=== PATIENT | female | born 1955 | race Caucasian/White ===

== ENCOUNTER 2017-12-17 19:58 | Inpatient (IN) ==
[2017-12-17] MEDS ORDERED: Acetaminophen 325 MG Tablet PO ONE (21:56)
[2017-12-17] MEDS ORDERED: Vancomycin Inj 1 GM/200 ML PIGGYBACK IV.SIG ONE (21:56)
[2017-12-17] MEDS ORDERED: Sod Chloride 0.9% Inj 1,000 ML IV.SIG ONE (21:59)
[2017-12-18 00:05] LABS: Baso # (Auto) 0.1 th/mm3 (0.0-0.2); Baso % (Auto) 0.3 % (0.0-2.0); Eos % (Auto) 0.2 % (0.0-4.0); Hematocrit 39.9 % (35.0-46.0); Hemoglobin 13.7 gm/dL (11.6-15.3); Lymph # (Auto) 2.2 th/mm3 (1.0-4.8); Lymph % (Auto) 10.8 % (9.0-44.0); Mean Corpuscular HGB Conc 34.4 % (32.0-36.0); Mean Corpuscular Volume 93.1 fL (80.0-100.0); Mean Platelet Volume 9.7 fL (7.0-11.0); Mono # (Auto) 1.5 th/mm3 (0.0-0.9); Mono % (Auto) 7.2 % (0.0-8.0); Neut # (Auto) 16.7 th/mm3 (1.8-7.7); Neut % (Auto) 81.5 % (16.0-70.0); Platelet Count 197 th/mm3 (150-450); Red Blood Count 4.29 mil/mm3 (4.00-5.30); Red Cell Distribution Width 12.6 % (11.6-17.2); White Blood Count 20.5 th/mm3 (4.0-11.0)
[2017-12-18 00:15] LABS: Calcium 9.4 mg/dL (8.5-10.1)
--- NOTE | 2017-12-18 00:59 | CT ---
EXAM DATE: 12/18/2017 12:43 AM EDT AGE/SEX: 62 years / Female INDICATIONS: Possible abscess below umbilical region. CLINICAL DATA: This is the patient's initial encounter. Patient reports that signs and symptoms have been present for 3 days and indicates a pain score of 5/10. MEDICAL/SURGICAL HISTORY: Aneurysm, intracranial. Hypertension. Craniotomy. ORAL CONTRAST: No oral contrast ingested. RADIATION DOSE: 18.23 CTDI (mGy) COMPARISON: No prior exams available for comparison. TECHNIQUE: Multiple contiguous axial images were obtained through the abdomen and pelvis following b olus infusion of 95 ml Omnipaque 350 (iohexol) nonionic water-soluble contrast as a single exam dos e. No oral contrast ingested. Using automated exposure control and adjustment of the mA and/or kV ac cording to patient size, radiation dose was kept as low as reasonably achievable to obtain optimal di agnostic quality images. DICOM format image data is available electronically for review and comparis on. FINDINGS: Lower anterior abdominal wall subcutaneous fat is indurated, especially in the right lower quadrant. No organized or drainable fluid demonstrated. No intraperitoneal involvement seen. The liver, spleen and pancreas are normal. A few small stones in an otherwise normal-appearing gallbl adder. No ductal stone or ductal dilatation. There are nodules of the left adrenal gland, 15 mm of the medial limb and 12 mm of the lateral limb, statistically most likely adenomas. Right adrenal gland is normal. 12 mm left lower pole benign renal cyst.. Right kidney has a 17 mm benign cyst of the mid zone. No obstruction or acute inflammatory changes are seen of the gastrointestinal tract. There is a small hiatal hernia. Prominent central low-attenuation of the uterus measuring approximately 19 x 28 mm in size. There is atherosclerosis of the abdominal aorta. No aneurysm. Visualized lung bases are within normal limits. No acute bony abnormality demonstrated. CONCLUSION: 1. Broad area cellulitis of the anterior abdominal wall, mostly in the right lower quadrant. No perc eptible abscess. No intraperitoneal involvement demonstrated. 2. CT appearance of the uterus of concern for a possible endometrial mass/carcinoma. 3. Left adrenal nodules, nonspecific but statistically most likely adenomas. 4. Bilateral benign renal cysts. 5. Cholelithiasis without evidence of cholecystitis. No ductal stone or ductal dilatation. 6. Atherosclerotic aorta. 7. Small hiatal hernia. Electronically signed by: Mehul Christy MD 12/18/2017 12:58 AM EDT
[2017-12-18] MEDS ORDERED: Bisacodyl 10 MG Supp RECTAL PRN (01:20)
[2017-12-18] MEDS ORDERED: Temazepam 15 MG Capsule PO PRN (01:20)
[2017-12-18] MEDS ORDERED: Vancomycin Consult Pharmacy 1 EACH OTHER SCH (02:00)
[2017-12-18] MEDS ORDERED: Vancomycin Inj 1,250 MG in Sodium Chlor 0.9% Inj 250 ML IV.SIG SCH (02:00)
[2017-12-18] MEDS ORDERED: Vancomycin Inj 1,000 MG in Sodium Chlor 0.9% Inj 250 ML IV.SIG SCH (02:15)
--- NOTE | 2017-12-18 02:17 | ED ---
HPI General Chief complaint: Skin/Abscess/Foreign Body Stated complaint: SKIN IRRITATION Time Seen by Provider: 12/17/17 21:47 History of Present Illness HPI narrative: 62-year-old female presents to the emergency department for complaint of red rash to the lower abdominal wall over the past 2 days. Symptoms have progressively worsened. Patient states she was working out of doors and felt that she might of been stung or bitten by some type of insect and noted some redness. Patient states since that time that she has had progression of her redness and noted that she had fever. Patient's had no myalgias or arthralgias. Patient's had no rigor. Patient is not diabetic. Patient rates discomfort as moderate. Patient does have history of hypertension and takes blood pressure medication as prescribed. Patient is taken no medication for her symptoms no acetaminophen or ibuprofen. Patient is unable to identify exacerbating or alleviating factors. Related Data Home Medications Medication Instructions Recorded Confirmed benazepril 40 mg PO DAILY 12/17/17 12/17/17 lovastatin 10 mg PO DAILY 12/17/17 12/17/17 metoprolol succinate 100 mg PO DAILY 12/17/17 12/17/17 nifedipine 60 mg PO DAILY 12/17/17 12/17/17 Allergies Allergy/AdvReac Type Severity Reaction Status Date / Time Penicillins Allergy Severe Hives Verified 12/17/17 21:55 codeine Allergy Rash Verified 12/17/17 23:02 morphine Allergy Rash Verified 12/17/17 23:02 Sulfa (Sulfonamide Allergy Rash Verified 12/17/17 23:02 Antibiotics) aspirin AdvReac Bleeding Verified 12/17/17 23:02 Review of Systems Except as stated in HPI: all other systems reviewed are negative [facility] Medical History Medical History Brain aneurysm (Acute) Fibromyalgia (Acute) HTN (hypertension) (Acute) Surgical History Surgical History Hx of cardiac cath (Acute) Social History Social History Substance History: No History of Abuse Second Hand Smoke Exposure: No Smoking Status: Former smoker How Often Do You Have a Drink Containing Alcohol: Never Recent Travel in [facility] within the Last 8 Weeks: No Recent Out of Country Travel within the Last 8 Weeks: No Exam Narrative Exam Narrative: GENERAL: Well-nourished, well-developed patient. SKIN: Focused skin assessment warm/dry. HEAD: Normocephalic. EYES: No scleral icterus. No injection or drainage. NECK: Supple, trachea midline. No JVD or lymphadenopathy. CARDIOVASCULAR: Regular rate and rhythm without murmurs, gallops, or rubs. RESPIRATORY: Breath sounds equal bilaterally. No accessory muscle use. GASTROINTESTINAL: Abdomen soft, non-tender, nondistended. Attention lower abdominal wall patient has an area of bright erythema with warmth and area of firmness without fluctuance or pointing 31 cm x 11 cm. MUSCULOSKELETAL: No cyanosis, or edema. BACK: Nontender without obvious deformity. No CVA tenderness. Course Initial Documented Vital Signs Temperature 99.3 F 12/17/17 20:07 Pulse Rate 98 H 12/17/17 20:07 Respiratory Rate 18 12/17/17 20:07 Blood Pressure 158/97 H 12/17/17 20:07 Pulse Oximetry 100 12/17/17 20:07 Last Documented Vital Signs Temperature 97.2 F L 12/18/17 04:00 Pulse Rate 65 12/18/17 04:00 Respiratory Rate 20 12/18/17 04:00 Blood Pressure 117/55 L 12/18/17 04:00 Pulse Oximetry 96 12/18/17 04:00 Medical Decision Making [facility] Narrative Medical decision making narrative: 62-year-old female with erythematous rash consistent with localized area of cellulitis possible early her elevated heart rate meet sepsis criteria and IV access obtained specimens collected and sent for resulting patient given IV fluids antipyretics and vancomycin Leukocytosis without an elevated lactic patient with good response to antipyretics CAT scan shows cellulitis Patient's case discussed with on-call medicine, Dr Locke, for admission for sepsis and abdominal wall cellulitis Differential Diagnosis Differential Diagnosis: Cellulitis abscess sepsis Medical Records Medical records reviewed: Yes I reviewed the patient's medical records. Lab Data Lab results reviewed: Yes I reviewed the patient's lab results. Result diagrams: 12/17/17 23:45 12/17/17 23:45 Lab Results 12/17/17 12/17/17 12/17/17 Range/Units 00:20 23:45 23:45 CBC w Diff Auto diff final WBC 20.5 H (4.0-11.0) th/mm3 RBC 4.29 (4.00-5.30) mil/mm3 Hgb 13.7 (11.6-15.3) gm/dL Hct 39.9 (35.0-46.0) % MCV 93.1 (80.0-100.0) fL MCH 32.0 (27.0-34.0) pg MCHC 34.4 (32.0-36.0) % RDW 12.6 (11.6-17.2) % Plt Count 197 (150-450) th/mm3 MPV 9.7 (7.0-11.0) fL Neut % (Auto) 81.5 H (16.0-70.0) % Lymph % (Auto) 10.8 (9.0-44.0) % [place] % (Auto) 7.2 (0.0-8.0) % Eos % (Auto) 0.2 (0.0-4.0) % Baso % (Auto) 0.3 (0.0-2.0) % Neut # (Auto) 16.7 H (1.8-7.7) th/mm3 Lymph # (Auto) 2.2 (1.0-4.8) th/mm3 [place] # (Auto) 1.5 H (0.0-0.9) th/mm3 Eos # (Auto) 0.0 (0.0-0.4) th/mm3 Baso # (Auto) 0.1 (0.0-0.2) th/mm3 WBC Differential . Sodium 134 L (136-145) meq/L Potassium 4.0 (3.5-5.1) meq/L Chloride 107 (98-107) meq/L Carbon Dioxide 18.0 L (21.0-32.0) meq/L Anion Gap 9 (5-15) meq/L BUN 13 (7-18) mg/dL Creatinine 0.78 (0.50-1.00) mg/dL Estimated GFR 75 L (>89) mL/min Random Glucose 110 H (74-106) mg/dL Lactic Acid 0.8 (0.4-2.0) mmol/L Calcium 9.4 (8.5-10.1) mg/dL Lactic acid is not elevated Imaging Data Radiologist's impression: ITS Impressions Abdomen/Pelvis CT 12/18/17 00:00 CONCLUSION: 1. Broad area cellulitis of the anterior abdominal wall, mostly in the right lower quadrant. No perceptible abscess. No intraperitoneal involvement demonstrated. 2. CT appearance of the uterus of concern for a possible endometrial mass/ carcinoma. 3. Left adrenal nodules, nonspecific but statistically most likely adenomas. 4. Bilateral benign renal cysts. 5. Cholelithiasis without evidence of cholecystitis. No ductal stone or ductal dilatation. 6. Atherosclerotic aorta. 7. Small hiatal hernia. Discharge Plan Discharge Disposition Patient Disposition: 30 Still Patient Physicians Team ED Provider: Irene Alanis Primary Care Provider: Blake Wilder Attending Provider: Augustine Moctezuma Status ED Status: Left Department Discharge Information Discharge Date/Time: 12/18/17 02:30
[2017-12-18] MEDS: Sod Chloride 0.9% Inj 1,000 ML IV.CONT SCH ×3 (03:16→20:43)
[2017-12-18] MEDS: Vancomycin Inj 1,250 MG in Sodium Chlor 0.9% Inj 250 ML IV.SIG SCH ×2 (05:26→17:00)
[2017-12-18] MEDS: Senna/Docusate Sodium 8.6/50 MG Tablet PO SCH ×2 (08:22→20:43)
--- NOTE | 2017-12-18 10:22 | P.HP ---
History of Present Illness Primary Care Physician: Blake Wilder MD Chief Complaint: Abdominal skin red and painful History of Present Illness: 8-year-old female with known history of hypertension, hyperlipidemia, fibromyalgia, history of brain abscess who presented to the hospital because of abdominal skin redness and pain. Patient states that she was in her normal state of health until Thursday when she noticed a little red spot on her abdomen after she had been working in the yard. And then progressively since then started developing worsening erythema and pain. Patient states that the pain was 8/10 on a pain scale yesterday and because she was not improving she came to the emergency department for evaluation. Patient had workup done emergency department and found to have elevated white count, CT indicating extensive abdominal wall cellulitis without any abscess, febrile illness, sinus tachycardia. Because of the findings it was recommended by the ER physician that the patient be admitted for further evaluation and management. Patient denies any drainage, exudates - Diagnosis (1) Sepsis (2) Cellulitis of abdominal wall (3) Hypertension Inpatient Certification: I certify that the inpatient services were ordered in accordance with Medicare regulations governing the order. This includes certification that hospital inpatient services are reasonable and necessary and in the case of services not specified as inpatient-only under 42 CFR 419.22(n), that they are appropriately provided as inpatient services in accordance to with the 2-midnight benchmark under 43 CFR 412.3(e) Estimated Total Length of Stay (Days): 2 Plans for Post Hospital Care: Home Review of Systems All other systems reviewed negative except as stated in HPI Constitutional: Reports chills, Reports fever(s) Gastrointestinal: Reports abdominal pain Skin/Breast: Reports change in skin color, Reports rash PMFSH - History History Provided By: Patient - Medical History Medical History: Medical History (Last Reviewed 12/18/17 @ 10:17 by ARMIDA Graves) Brain aneurysm Fibromyalgia HTN (hypertension) Renal artery stenosis - Surgical History Surgical History: Surgical History (Last Reviewed 12/18/17 @ 10:17 by ARMIDA Graves) History of brain surgery Hx of cardiac cath - Family History Family History: Family History (Last Reviewed 12/18/17 @ 10:17 by ARMIDA Graves) Father Family history of brain aneurysm - Tobacco History Second Hand Smoke Exposure: No Tobacco Use In Past 30 Days: No Smoking Status: Former smoker Number of Pack Years (if former smoker): 37 Smoking End Date: December 09, 2008 - Alcohol History How Often Do You Have a Drink Containing Alcohol: Never - Substance Use History Substance History: No History of Abuse - Travel History Recent Travel in the [place] Within the Last 8 Weeks: No Recent Travel Out of the Country Within the Last 8 Weeks: No - Immunization History Tetanus Immunization: >5 Years Hx Influenza Vaccine This Season: No Medications and Allergies Active Medications: Active Medications Bisacodyl (Dulcolax Supp) 10 mg RECTAL DAILY PRN PRN Reason: SEVERE CONSITIPATION Sodium Chloride (Ns Inj) 1,000 mls @ 100 mls/hr IV.CONT .Q10H [facility] Last Admin: 12/18/17 03:16 Dose: 100 mls/hr Pharmacy Profile Note (Vancomycin Consult Pharmacy) 0 mls @ 0 mls/hr OTHER UNSCH [facility] Vancomycin HCl 1,250 mg/ (Sodium Chloride) 262.5 mls @ 250 mls/hr IV.SIG Q12H [facility] Last Infusion: 12/18/17 06:52 Dose: Infused Lactulose (Lactulose Liq) 30 ml PO DAILY PRN PRN Reason: SEVERE CONSITIPATION Miscellaneous Information ([facility] Ordered Lab Info) 0 each OTHER ONCE@ 1345 ONE Stop: 12/19/17 04:46 Non-Formulary Medication (Lovastatin [Lovastatin]) 10 mg PO DAILY [facility] Non-Formulary Medication (Metoprolol Succinate [Metoprolol Succinate]) 200 mg PO DAILY [facility] Non-Formulary Medication (Nifedipine [Nifedipine]) 60 mg PO DAILY [facility] Non-Formulary Medication (Benazepril [Benazepril]) 40 mg PO DAILY [facility] Senna/Docusate Sodium (Joanne-Colace) 1 tab PO BID [facility] Last Admin: 12/18/17 08:22 Dose: 1 tab Sennosides (Senokot) 17.2 mg PO Q12H PRN PRN Reason: Moderate Constipation Temazepam (Restoril) 15 mg PO HS PRN PRN Reason: INSOMNIA Allergies Allergy/AdvReac Type Severity Reaction Status Date / Time Penicillins Allergy Severe Hives Verified 12/17/17 21:55 codeine Allergy Rash Verified 12/17/17 23:02 morphine Allergy Rash Verified 12/17/17 23:02 Sulfa (Sulfonamide Allergy Rash Verified 12/17/17 23:02 Antibiotics) aspirin AdvReac Bleeding Verified 12/17/17 23:02 Home Medications Medication Instructions Recorded Confirmed Type benazepril 40 mg PO DAILY 12/17/17 12/17/17 History lovastatin 10 mg PO DAILY 12/17/17 12/17/17 History metoprolol succinate 100 mg PO DAILY 12/17/17 12/17/17 History nifedipine 60 mg PO DAILY 12/17/17 12/17/17 History Exam Vital signs: Vital Signs 12/17/17 20:07 12/17/17 22:34 12/17/17 23:30 Temperature 99.3 F 102.5 F H 101.4 F H Pulse Rate 98 H 88 Respiratory Rate 18 22 Blood Pressure 158/97 H 147/87 H 171/81 H Pulse Oximetry 100 98 97 12/17/17 23:50 12/18/17 01:20 12/18/17 02:00 Temperature 100.0 F H Pulse Rate 100 H 72 Respiratory Rate 20 Blood Pressure 147/87 H 111/58 L 120/45 L Pulse Oximetry 12/18/17 04:00 12/18/17 08:00 Temperature 97.2 F L 98.0 F Pulse Rate 65 76 Respiratory Rate 20 16 Blood Pressure 117/55 L 119/64 Pulse Oximetry 96 99 Intake & Output 12/17/17 12/18/17 12/18/17 18:59 06:59 18:59 Intake Total 1462.5 / 1462.5 Balance 1462.5 / 1462.5 Weight 94.7 kg Intake: IV 1462.5 / 1462.5 NS Inj 1,000 ML @ Wide Open IV. 1000 / 1000 SIG BOLUS ONE Rx#:[id number] Vancomycin Inj 1 gm In 200 ml @ 200 / 200 200 mls/hr IV.SIG ONCE ONE Rx# :[id number] Vancomycin Inj 1,250 MG In NS 262.5 / 262.5 Inj 250 ML @ 250 mls/hr IV.SIG Q12H [facility] Rx#:[id number] Other: Weight On Admission 94.7 kg Narrative: GENERAL: Well-developed, well-nourished, in no acute distress. alert and orientated HEENT: Head is normocephalic without any lesions or masses noted. Facial features are symmetric. Eyes: Pupils equal round reactive to light. Extraocular muscles are intact. Conjunctivae were clear. Oropharyngeal: Pharynx without any erythema edema. Tongue is midline without deviation. Buccal mucosa is moist without any masses or lesions NECK: Supple without any masses. Trachea midline no deviation. No JVD, no bruits are appreciated CARDIAC: Regular rhythm, regular rate. S1/S2 are heard. No murmurs gallops or rubs. LUNGS: Clear to auscultation bilaterally. No wheeze, rhonchi or rales. No use of accessory muscles on inspiration or expiration. ABDOMEN: Soft, nontender. Nondistended. Bowel sounds heard in all 4 quadrants. No organomegaly or masses. Negative rebound, negative guarding EXTREMITIES: No edema, pulses are equal bilaterally. No cyanosis or clubbing NEUROLOGY: Mood and affect appear appropriate. Cranial nerves II through XII grossly intact. Muscle strength 5/5 in upper and lower extremities bilaterally. Deep tendon reflexes are 2+ in upper and lower extremities bilaterally. SKIN: Patient does have significant erythema noted to her pannus area has been marked. Over on the right side of her pannus there is an area measuring 2 x 3 cm of granulated tissue. No exudates were appreciated or fluctuance noted. Results - Labs CBC & Chem 7: 12/17/17 23:45 12/17/17 23:45 Labs: Laboratory Results - last 24 hr 12/17/17 12/17/17 12/17/17 00:20 23:45 23:45 CBC w Diff Auto diff final WBC 20.5 H RBC 4.29 Hgb 13.7 Hct 39.9 MCV 93.1 MCH 32.0 MCHC 34.4 RDW 12.6 Plt Count 197 MPV 9.7 Neut % (Auto) 81.5 H Lymph % (Auto) 10.8 [place] % (Auto) 7.2 Eos % (Auto) 0.2 Baso % (Auto) 0.3 Neut # (Auto) 16.7 H Lymph # (Auto) 2.2 [place] # (Auto) 1.5 H Eos # (Auto) 0.0 Baso # (Auto) 0.1 WBC Differential . Sodium 134 L Potassium 4.0 Chloride 107 Carbon Dioxide 18.0 L Anion Gap 9 BUN 13 Creatinine 0.78 Estimated GFR 75 L POC Glucose Random Glucose 110 H Lactic Acid 0.8 Calcium 9.4 12/18/17 07:54 CBC w Diff WBC RBC Hgb Hct MCV MCH MCHC RDW Plt Count MPV Neut % (Auto) Lymph % (Auto) [place] % (Auto) Eos % (Auto) Baso % (Auto) Neut # (Auto) Lymph # (Auto) [place] # (Auto) Eos # (Auto) Baso # (Auto) WBC Differential Sodium Potassium Chloride Carbon Dioxide Anion Gap BUN Creatinine Estimated GFR POC Glucose 97 Random Glucose Lactic Acid Calcium - Imaging Impressions Abdomen/Pelvis CT 12/18/17 00:00 CONCLUSION: 1. Broad area cellulitis of the anterior abdominal wall, mostly in the right lower quadrant. No perceptible abscess. No intraperitoneal involvement demonstrated. 2. CT appearance of the uterus of concern for a possible endometrial mass/ carcinoma. 3. Left adrenal nodules, nonspecific but statistically most likely adenomas. 4. Bilateral benign renal cysts. 5. Cholelithiasis without evidence of cholecystitis. No ductal stone or ductal dilatation. 6. Atherosclerotic aorta. 7. Small hiatal hernia. Caprini VTE Risk Assessment Caprini VTE Risk Assessment: Moderate/High Risk (score >= 2) Caprini Risk Assessment Model: Point Value = 1 Point Value = 2 Point Value = 3 Point Value = 5 Age 41-60 Minor surgery BMI > 25 kg/m2 Swollen legs Varicose veins or History of unexplained or recurrent spontaneous Oral contraceptives or hormone replacement Sepsis (< 1 month) Serious lung disease, including pneumonia (< 1 month) Abnormal pulmonary function Acute myocardial infarction Congestive heart failure (< 1 month) History of inflammatory bowel disease Medical patient at bed rest Age 61-74 Arthroscopic surgery Major open surgery (> 45 min) Laparoscopic surgery (> 45 min) Malignancy Confined to bed (> 72 hours) Immobilizing plaster cast Central venous access Age >= 75 History of VTE Family history of VTE Factor V Leiden Prothrombin [id number] Lupus anticoagulant Anticardiolipin antibodies Elevated serum homocysteine Heparin-induced thrombocytopenia Other congenital or acquired thrombophilia Stroke (< 1 month) Elective arthroplasty Hip, pelvis, or leg fracture Acute spinal cord injury (< 1 month) Prophylaxis Regimen: Total Risk Factor Score Risk Level Prophylaxis Regimen 0-1 Low Early ambulation 2 Moderate Order ONE of the following: *Sequential Compression Device (SCD) *Heparin 5000 units SQ BID 3-4 Higher Order ONE of the following medications: *Heparin 5000 units SQ TID *Enoxaparin/Lovenox 40 mg SQ daily (WT < 150 kg, CrCl > 30 mL/min) *Enoxaparin/Lovenox 30 mg SQ daily (WT < 150 kg, CrCl > 10-29 mL/min) *Enoxaparin/Lovenox 30 mg SQ BID (WT < 150 kg, CrCl > 30 mL/min) AND/OR *Sequential Compression Device (SCD) 5 or more Highest Order ONE of the following medications: *Heparin 5000 units SQ TID (Preferred with Epidurals) *Enoxaparin/Lovenox 40 mg SQ daily (WT < 150 kg, CrCl > 30 mL/min) *Enoxaparin/Lovenox 30 mg SQ daily (WT < 150 kg, CrCl > 10-29 mL/min) *Enoxaparin/Lovenox 30 mg SQ BID (WT < 150 kg, CrCl > 30 mL/min) AND *Sequential Compression Device (SCD) Assessment and Plan - Assessment (1) Sepsis Code(s): A41.9 - Sepsis, unspecified organism Status: Acute Plan: -Patient met criteria on admission with leukocytosis, febrile illness, tachycardia, abdominal wall cellulitis -Patient started on empirical antibiotics include vancomycin -Blood cultures are pending (2) Cellulitis of abdominal wall Code(s): L03.311 - Cellulitis of abdominal wall Status: Acute Plan: -Continue to monitor response to antibiotics -Area may start to develop into an abscess, will need to perform ultrasound if fluctuance noted -If abscess occurs will need general surgery for incision and drainage (3) Hypertension Code(s): I10 - Essential (primary) hypertension Status: Acute Plan: -Home medications continued - Plan DVT prevention -Sequential compression devices
[2017-12-18] MEDS: Lisinopril 20 MG Tablet PO SCH (10:39)
[2017-12-18 11:10] LABS: Baso # (Auto) 0.1 th/mm3 (0.0-0.2); Baso % (Auto) 0.6 % (0.0-2.0); Eos # (Auto) 0.2 th/mm3 (0.0-0.4); Eos % (Auto) 1.1 % (0.0-4.0); Hematocrit 37.9 % (35.0-46.0); Hemoglobin 13.2 gm/dL (11.6-15.3); Lymph # (Auto) 2.1 th/mm3 (1.0-4.8); Lymph % (Auto) 11.3 % (9.0-44.0); Mean Corpuscular HGB Conc 34.8 % (32.0-36.0); Mean Corpuscular Hemoglobin 32.3 pg (27.0-34.0); Mean Corpuscular Volume 92.7 fL (80.0-100.0); Mean Platelet Volume 9.4 fL (7.0-11.0); Mono # (Auto) 1.8 th/mm3 (0.0-0.9); Mono % (Auto) 9.4 % (0.0-8.0); Neut # (Auto) 14.6 th/mm3 (1.8-7.7); Neut % (Auto) 77.6 % (16.0-70.0); Platelet Count 179 th/mm3 (150-450); Red Blood Count 4.08 mil/mm3 (4.00-5.30); Red Cell Distribution Width 12.4 % (11.6-17.2); White Blood Count 18.8 th/mm3 (4.0-11.0)
[2017-12-18] MEDS ORDERED: Pharmacy Ordered Lab Info OTHER ONE (13:45)
[2017-12-18] MEDS: Acetaminophen 325 MG Tablet PO PRN ×2 (14:12→21:45)
[2017-12-19] MEDS ORDERED: Pharmacy Ordered Lab Info OTHER ONE ×2 (04:45→13:45)
[2017-12-19] MEDS: Vancomycin Inj 1,250 MG in Sodium Chlor 0.9% Inj 250 ML IV.SIG SCH ×2 (04:54→16:59)
[2017-12-19 07:38] LABS: Baso # (Auto) 0.1 th/mm3 (0.0-0.2); Baso % (Auto) 0.4 % (0.0-2.0); Eos # (Auto) 0.2 th/mm3 (0.0-0.4); Eos % (Auto) 0.9 % (0.0-4.0); Hematocrit 38.5 % (35.0-46.0); Hemoglobin 13.1 gm/dL (11.6-15.3); Lymph # (Auto) 2.3 th/mm3 (1.0-4.8); Mean Corpuscular HGB Conc 34.1 % (32.0-36.0); Mean Corpuscular Hemoglobin 32.5 pg (27.0-34.0); Mean Corpuscular Volume 95.4 fL (80.0-100.0); Mean Platelet Volume 10.1 fL (7.0-11.0); Mono # (Auto) 1.5 th/mm3 (0.0-0.9); Mono % (Auto) 7.9 % (0.0-8.0); Neut # (Auto) 15.2 th/mm3 (1.8-7.7); Neut % (Auto) 78.8 % (16.0-70.0); Platelet Count 178 th/mm3 (150-450); Red Blood Count 4.03 mil/mm3 (4.00-5.30); Red Cell Distribution Width 12.2 % (11.6-17.2); White Blood Count 19.3 th/mm3 (4.0-11.0)
--- NOTE | 2017-12-19 08:07 | P.PN ---
Subjective Interval history: Patient seen and examined today for follow-up on abdominal wall cellulitis. Patient indicates that has not gotten any better. Is getting more painful. Upon evaluation the erythema has significantly spread and is more painful. She did have fever overnight. Physical Exam Vital signs: Vital Signs 12/18/17 12:00 12/18/17 16:00 12/18/17 20:00 Temperature 99.5 F 98.9 F 101.2 F H Pulse Rate 93 H 86 98 H Respiratory Rate 18 17 12 Blood Pressure 146/81 H 125/58 L 162/72 H Pulse Oximetry 99 95 98 12/19/17 00:00 12/19/17 07:36 Temperature 98.9 F 99.3 F Pulse Rate 81 85 Respiratory Rate 16 20 Blood Pressure 121/58 L 130/63 Pulse Oximetry 96 96 Intake & Output 12/18/17 12/19/17 12/19/17 18:59 06:59 18:59 Intake Total 1000 / 1000 3585.0 / 3585.0 Balance 1000 / 1000 3585.0 / 3585.0 Weight 94.7 kg Intake: IV 1000 / 1000 2525.0 / 2525.0 NS Inj 1,000 ML @ 100 mls/hr IV 1000 / 1000 2000 / 2000 .CONT .Q10H G[facility] Rx#:[id number] Vancomycin Inj 1,250 MG In NS 525.0 / 525.0 Inj 250 ML @ 250 mls/hr IV.SIG Q12H G[facility] Rx#:[id number] Oral 1060 / 1060 Other: # Voids 1 # Bowel Movements 0 Narrative: GENERAL: Well-developed, well-nourished, in no acute distress. alert and orientated HEENT: Head is normocephalic without any lesions or masses noted. Facial features are symmetric. Eyes: Extraocular muscles are intact. Conjunctivae were clear. NECK: Supple without any masses. Trachea midline no deviation. No JVD, CARDIAC: Regular rhythm, regular rate. S1/S2 are heard. No murmurs gallops or rubs. LUNGS: Clear to auscultation bilaterally. No wheeze, rhonchi or rales. No use of accessory muscles on inspiration or expiration. ABDOMEN: Soft, nontender. Nondistended. Bowel sounds heard in all 4 quadrants. No organomegaly or masses. Negative rebound, negative guarding EXTREMITIES: No edema, pulses are equal bilaterally. No cyanosis or clubbing NEUROLOGY: Mood and affect appear appropriate. Cranial nerves II through XII grossly intact. Moving all extremities, speech clear SKIN: Patient does have significant erythema noted to her pannus area has been marked. Erythema has significantly worsened overnight. Over on the right side of her pannus there is an area measuring 2 x 3 cm of granulated tissue. No exudates were appreciated or fluctuance noted. Results - Labs CBC & Chem 7: 12/20/17 08:10 12/20/17 08:10 Laboratory Results - last 24 hr 12/18/17 12/18/17 12/18/17 07:54 11:00 11:24 CBC w Diff Auto diff final WBC 18.8 H RBC 4.08 Hgb 13.2 Hct 37.9 MCV 92.7 MCH 32.3 MCHC 34.8 RDW 12.4 Plt Count 179 MPV 9.4 Neut % (Auto) 77.6 H Lymph % (Auto) 11.3 [place] % (Auto) 9.4 H Eos % (Auto) 1.1 Baso % (Auto) 0.6 Neut # (Auto) 14.6 H Lymph # (Auto) 2.1 [place] # (Auto) 1.8 H Eos # (Auto) 0.2 Baso # (Auto) 0.1 WBC Differential . Differential Comment . POC Glucose 97 106 12/19/17 06:10 CBC w Diff Auto diff final WBC 19.3 H RBC 4.03 Hgb 13.1 Hct 38.5 MCV 95.4 MCH 32.5 MCHC 34.1 RDW 12.2 Plt Count 178 MPV 10.1 Neut % (Auto) 78.8 H Lymph % (Auto) 12.0 [place] % (Auto) 7.9 Eos % (Auto) 0.9 Baso % (Auto) 0.4 Neut # (Auto) 15.2 H Lymph # (Auto) 2.3 [place] # (Auto) 1.5 H Eos # (Auto) 0.2 Baso # (Auto) 0.1 WBC Differential . Differential Comment . POC Glucose Microbiology 12/17/17 23:45 Blood - Peripheral Aerobic Blood Culture - Preliminary No growth in 1 day 12/17/17 23:45 Blood - Peripheral Anaerobic Blood Culture - Preliminary No growth in 1 day Assessment and Plan - Assessment (1) Sepsis Code(s): A41.9 - Sepsis, unspecified organism Status: Acute Plan: -Patient met criteria on admission with leukocytosis, febrile illness, tachycardia, abdominal wall cellulitis -Patient started on empirical antibiotics include vancomycin -We will add Levaquin 750 mg IV daily and Flagyl 500 mg every 6 hours daily -Blood cultures are negative for 1 day (2) Cellulitis of abdominal wall Code(s): L03.311 - Cellulitis of abdominal wall Status: Acute Plan: -Continue to monitor response to antibiotics -Area may start to develop into an abscess, will need to perform ultrasound if fluctuance noted -If abscess occurs will need general surgery for incision and drainage (3) Hypertension Code(s): I10 - Essential (primary) hypertension Status: Chronic Plan: -Home medications continued - Plan DVT prevention -Sequential compression devices
[2017-12-19 08:10] LABS: Chloride 109 meq/L (98-107); Potassium 3.5 meq/L (3.5-5.1); Sodium 143 meq/L (136-145)
[2017-12-19 08:13] LABS: Albumin 2.9 g/dL (3.4-5.0); Anion Gap 8 meq/L (5-15); Calcium 9.2 mg/dL (8.5-10.1); Carbon Dioxide 26.1 meq/L (21.0-32.0); Glucose,Random 91 mg/dL (74-106)
[2017-12-19 08:14] LABS: Blood Urea Nitrogen 8 mg/dL (7-18)
[2017-12-19 08:16] LABS: Alanine Aminotransferase 56 U/L (10-53)
[2017-12-19 08:17] LABS: Aspartate Aminotransferase 35 U/L (15-37); Glomerular Filtration Rate 87 mL/min (>89)
[2017-12-19 08:20] LABS: Alkaline Phosphatase 219 U/L (45-117)
[2017-12-19] MEDS: Lisinopril 20 MG Tablet PO SCH (09:33)
[2017-12-19] MEDS: Senna/Docusate Sodium 8.6/50 MG Tablet PO SCH ×2 (09:34→21:25)
[2017-12-19] MEDS: Sod Chloride 0.9% Inj 1,000 ML IV.CONT SCH ×2 (11:48→21:24)
[2017-12-20] MEDS: Vancomycin Inj 1,250 MG in Sodium Chlor 0.9% Inj 250 ML IV.SIG SCH ×3 (02:26→17:26)
[2017-12-20] MEDS: Sod Chloride 0.9% Inj 1,000 ML IV.CONT SCH ×2 (04:24→14:39)
--- NOTE | 2017-12-20 08:10 | P.PN ---
Subjective Interval history: Patient seen and examined today for follow-up on lower abdominal wall cellulitis /abscess. Patient does not notice any significant improvement. Patient does not have IV access at this time. Vital signs are stable, patient remains afebrile Physical Exam Vital signs: Vital Signs 12/19/17 11:29 12/19/17 15:34 12/19/17 20:00 Temperature 99.1 F 98.2 F 97.3 F L Pulse Rate 82 84 83 Respiratory Rate 20 20 20 Blood Pressure 126/60 143/67 H 136/71 Pulse Oximetry 96 98 98 12/20/17 00:00 12/20/17 07:17 Temperature 98.9 F 98.1 F Pulse Rate 84 78 Respiratory Rate 20 20 Blood Pressure 156/69 H 120/56 L Pulse Oximetry 99 96 Intake & Output 12/19/17 12/20/17 12/20/17 18:59 06:59 18:59 Intake Total 1752.5 / 1752.5 680 / 680 Balance 1752.5 / 1752.5 680 / 680 Weight 94.3 kg Intake: IV 612.5 / 612.5 200 / 200 NS Inj 1,000 ML @ 100 mls/hr IV 100 / 100 .CONT .Q10H [facility] Rx#:[id number] Levaquin 750 mg Premix Inj 150 150 / 150 ML @ 100 mls/hr IV.SIG Q24H [facility] Rx#:[id number] Vancomycin Inj 1,250 MG In NS 262.5 / 262.5 Inj 250 ML @ 250 mls/hr IV.SIG Q12H [facility] Rx#:[id number] Flagyl 500 MG Inj 100 ML @ 100 200 / 200 100 / 100 mls/hr IV.SIG Q6H GAR[facility] Rx#: [id number] Oral 1140 / 1140 480 / 480 Other: # Voids 4 4 # Bowel Movements 1 Narrative: GENERAL: Well-developed, well-nourished, in no acute distress. alert and orientated HEENT: Head is normocephalic without any lesions or masses noted. Facial features are symmetric. Eyes: Extraocular muscles are intact. Conjunctivae were clear. NECK: Supple without any masses. Trachea midline no deviation. No JVD, CARDIAC: Regular rhythm, regular rate. S1/S2 are heard. No murmurs gallops or rubs. LUNGS: Clear to auscultation bilaterally. No wheeze, rhonchi or rales. No use of accessory muscles on inspiration or expiration. ABDOMEN: Soft, nontender. Nondistended. Bowel sounds heard in all 4 quadrants. No organomegaly or masses. Negative rebound, negative guarding EXTREMITIES: No edema, pulses are equal bilaterally. No cyanosis or clubbing NEUROLOGY: Mood and affect appear appropriate. Cranial nerves II through XII grossly intact. Moving all extremities, speech clear SKIN: Patient does have significant erythema noted to her pannus area has been marked. Erythema has significantly worsened overnight. Over on the right side of her pannus there is an area measuring 2 x 3 cm of granulated tissue. Granulated area now is starting to develop fluctuance Results - Labs CBC & Chem 7: 12/19/17 06:10 12/19/17 06:10 Laboratory Results - last 24 hr 12/19/17 12/19/17 05:15 06:10 Sodium 143 Potassium 3.5 Chloride 109 H Carbon Dioxide 26.1 Anion Gap 8 BUN 8 Creatinine 0.69 Estimated GFR 87 L Random Glucose 91 Calcium 9.2 Total Bilirubin 0.8 AST 35 ALT 56 H Alkaline Phosphatase 219 H Total Protein 7.0 Albumin 2.9 L Vancomycin Trough 8.8 Microbiology 12/17/17 00:20 Blood - Peripheral Aerobic Blood Culture - Preliminary No growth in 1 day 12/17/17 00:20 Blood - Peripheral Anaerobic Blood Culture - Preliminary No growth in 1 day 12/17/17 23:45 Blood - Peripheral Aerobic Blood Culture - Preliminary No growth in 2 days 12/17/17 23:45 Blood - Peripheral Anaerobic Blood Culture - Preliminary No growth in 2 days Assessment and Plan - Assessment (1) Sepsis Code(s): A41.9 - Sepsis, unspecified organism Status: Acute Plan: -Patient met criteria on admission with leukocytosis, febrile illness, tachycardia, abdominal wall cellulitis -Continue vancomycin, Levaquin, and Flagyl -Blood cultures are negative for 2 day (2) Cellulitis of abdominal wall Code(s): L03.311 - Cellulitis of abdominal wall Status: Acute Plan: -Continue to monitor response to antibiotics -Clinically there is no developing fluctuance, no significant improvement from marked lines. -We will obtain soft tissue ultrasound to evaluate for any fluid collection -If fluid collection will consult surgery for incision and drainage -We will need to obtain culture at that time (3) Hypertension Code(s): I10 - Essential (primary) hypertension Status: Chronic Plan: -Home medications continued - Plan DVT prevention -Sequential compression devices
[2017-12-20 08:20] LABS: Baso # (Auto) 0.1 th/mm3 (0.0-0.2); Baso % (Auto) 0.6 % (0.0-2.0); Eos # (Auto) 0.3 th/mm3 (0.0-0.4); Eos % (Auto) 2.2 % (0.0-4.0); Hematocrit 37.5 % (35.0-46.0); Hemoglobin 12.8 gm/dL (11.6-15.3); Lymph # (Auto) 2.5 th/mm3 (1.0-4.8); Lymph % (Auto) 18.4 % (9.0-44.0); Mean Corpuscular Hemoglobin 31.6 pg (27.0-34.0); Mean Corpuscular Volume 92.8 fL (80.0-100.0); Mean Platelet Volume 9.4 fL (7.0-11.0); Mono # (Auto) 0.9 th/mm3 (0.0-0.9); Mono % (Auto) 6.7 % (0.0-8.0); Neut # (Auto) 9.7 th/mm3 (1.8-7.7); Neut % (Auto) 72.1 % (16.0-70.0); Platelet Count 200 th/mm3 (150-450); Red Blood Count 4.04 mil/mm3 (4.00-5.30); Red Cell Distribution Width 12.6 % (11.6-17.2); White Blood Count 13.5 th/mm3 (4.0-11.0)
[2017-12-20 08:31] LABS: Chloride 110 meq/L (98-107); Potassium 3.3 meq/L (3.5-5.1); Sodium 141 meq/L (136-145)
[2017-12-20 08:35] LABS: Albumin 2.7 g/dL (3.4-5.0); Anion Gap 7 meq/L (5-15); Blood Urea Nitrogen 8 mg/dL (7-18); Calcium 9.5 mg/dL (8.5-10.1); Carbon Dioxide 23.9 meq/L (21.0-32.0); Glucose,Random 106 mg/dL (74-106)
[2017-12-20 08:38] LABS: Alanine Aminotransferase 48 U/L (10-53); Aspartate Aminotransferase 23 U/L (15-37); Glomerular Filtration Rate Greater Than 89 mL/min (>89)
[2017-12-20 08:40] LABS: Total Protein 6.7 g/dL (6.4-8.2)
[2017-12-20 08:41] LABS: Alkaline Phosphatase 215 U/L (45-117)
[2017-12-20] MEDS: Senna/Docusate Sodium 8.6/50 MG Tablet PO SCH ×2 (08:56→20:03)
[2017-12-20] MEDS: Lisinopril 20 MG Tablet PO SCH (08:59)
--- NOTE | 2017-12-20 10:17 | US ---
EXAM DATE: 12/20/2017 10:07 AM EDT AGE/SEX: 62 years / Female INDICATIONS: Cellulitis. CLINICAL DATA: This is the patient's initial encounter. Patient reports that signs and symptoms have been present for 1 day and indicates a pain score of 5/10. MEDICAL/SURGICAL HISTORY: Hypertension. . COMPARISON: [facility], CT ABDOMEN & PELVIS W CONTRAST, 12/18/2017. . FINDINGS: Targeted sonogram right lower quadrant demonstrates edematous soft tissues. No fluid collec tion or mass. No ascites seen. CONCLUSION: 1. Soft tissue swelling right lower quadrant without collection. Electronically signed by: Dewayne Barnhart MD 12/20/2017 10:16 AM EDT
[2017-12-21] MEDS ORDERED: Pharmacy Ordered Lab Info OTHER ONE (00:45)
[2017-12-21] MEDS: Vancomycin Inj 1,250 MG in Sodium Chlor 0.9% Inj 250 ML IV.SIG SCH ×2 (00:58→14:54)
[2017-12-21] MEDS: Acetaminophen 325 MG Tablet PO PRN (00:58)
[2017-12-21] MEDS: Sod Chloride 0.9% Inj 1,000 ML IV.CONT SCH ×2 (01:03→09:47)
[2017-12-21] MEDS: Senna/Docusate Sodium 8.6/50 MG Tablet PO SCH (09:40)
[2017-12-21] MEDS: Lisinopril 20 MG Tablet PO SCH (09:41)
--- NOTE | 2017-12-21 13:48 | P.DS ---
Date of admission: 12/18/17 01:18 Primary care physician: Blake Wilder MD Attending physician on discharge: Augustine Moctezuma Anticipated date of discharge: 12/21/17 Brief History from admission: 8-year-old female with known history of hypertension, hyperlipidemia, fibromyalgia, history of brain abscess who presented to the hospital because of abdominal skin redness and pain. Patient states that she was in her normal state of health until Thursday when she noticed a little red spot on her abdomen after she had been working in the yard. And then progressively since then started developing worsening erythema and pain. Patient states that the pain was 8/10 on a pain scale yesterday and because she was not improving she came to the emergency department for evaluation. Patient had workup done emergency department and found to have elevated white count, CT indicating extensive abdominal wall cellulitis without any abscess, febrile illness, sinus tachycardia. Because of the findings it was recommended by the ER physician that the patient be admitted for further evaluation and management. Patient denies any drainage, exudates DS: Diagnosis - Discharge Diagnosis (1) Sepsis Status: Acute (2) Cellulitis of abdominal wall Status: Acute (3) Hypertension Status: Chronic DS: Medications - Discharge Medications Prescriptions: clindamycin HCl [Cleocin HCl] 300 mg PO TID #30 cap DS: Summary Hospital Course: 62-year-old female who originally presented the hospital due to cellulitis of the lower abdomen. Patient presented to the emergency department found to have significant fever, leukocytosis and cellulitis. Patient was admitted with sepsis due to cellulitis. Patient was started on vancomycin with only minimal. There was no significant improvement after the first 24 hours of her leukocytosis. Patient continued on fever until 12/18/17 at 8 PM at night at 101.2. Since then patient has remained afebrile. Ultrasound was performed of the area and there is no signs of any drainable fluid. Since there is no signs of drainable abscess surgical consultation was not needed. Patient was started on increased coverage with Levaquin and Flagyl with significant improvement. Patient does have allergy to penicillin and Bactrim. Patient started to significantly improve after 24 hours of additional antibiotics. She is no longer febrile. Leukocytosis has significantly improved. Patient improving nicely. Patient is eager to go home and is in agreement with discharge with oral antibiotics. We will plan discharge accordingly. - Time Spent with Patient Total time spent providing and/or coordinating discharge services: - Quality: VTE Deep Vein Thrombosis/Pulmonary Embolism Present on Admission: No Exam Vital signs: Vital Signs 12/20/17 16:16 12/20/17 20:00 12/21/17 00:00 Temperature 99.2 F 99.6 F 99 F Pulse Rate 84 89 85 Respiratory Rate 20 20 20 Blood Pressure 117/71 131/63 138/64 Pulse Oximetry 97 96 97 12/21/17 08:00 12/21/17 12:00 Temperature 96.8 F L 97.0 F L Pulse Rate 78 77 Respiratory Rate 16 16 Blood Pressure 131/66 134/77 Pulse Oximetry 96 97 Intake & Output 12/20/17 12/21/17 12/21/17 18:59 06:59 18:59 Intake Total 1865.0 / 1865.0 1830 / 1830 1480 / 1480 Balance 1865.0 / 1865.0 1830 / 1830 1480 / 1480 Weight 95 kg Intake: IV 725.0 / 725.0 1350 / 1350 1000 / 1000 NS Inj 1,000 ML @ 100 mls/hr IV 1000 / 1000 1000 / 1000 .CONT .Q10H [facility] Rx#:[id number] Levaquin 750 mg Premix Inj 150 150 / 150 ML @ 100 mls/hr IV.SIG Q24H [facility] Rx#:[id number] Vancomycin Inj 1,250 MG In NS 525.0 / 525.0 Inj 250 ML @ 250 mls/hr IV.SIG Q8H [facility] Rx#:[id number] Flagyl 500 MG Inj 100 ML @ 100 200 / 200 200 / 200 mls/hr IV.SIG Q6H [facility] Rx#: [id number] Oral 1140 / 1140 480 / 480 480 / 480 Other: # Voids 4 # Bowel Movements 0 Narrative: GENERAL: Well-developed, well-nourished, in no acute distress. alert and orientated HEENT: Head is normocephalic without any lesions or masses noted. Facial features are symmetric. Eyes: Extraocular muscles are intact. Conjunctivae were clear. NECK: Supple without any masses. Trachea midline no deviation. No JVD, CARDIAC: Regular rhythm, regular rate. S1/S2 are heard. No murmurs gallops or rubs. LUNGS: Clear to auscultation bilaterally. No wheeze, rhonchi or rales. No use of accessory muscles on inspiration or expiration. ABDOMEN: Soft, nontender. Nondistended. Bowel sounds heard in all 4 quadrants. No organomegaly or masses. Negative rebound, negative guarding EXTREMITIES: No edema, pulses are equal bilaterally. No cyanosis or clubbing NEUROLOGY: Mood and affect appear appropriate. Cranial nerves II through XII grossly intact. Moving all extremities, speech clear SKIN: Area of cellulitis has significantly improved, has almost returned to normal skin color except for a 3 x 2 cm area on the right lower abdomen which is still red coloration. However there is no fluctuance to indicate any possible abscess formation Results Procedures completed during hospitalization: None Labs on day of discharge: Labs from last 24 hours 12/21/17 00:40 Vancomycin Trough 24.3 H Preliminary micro results at discharge 12/17/17 00:20 Aerobic Blood Culture - Preliminary Blood - Peripheral No growth in 3 days Anaerobic Blood Culture - Preliminary No growth in 3 days 12/17/17 23:45 Aerobic Blood Culture - Preliminary Blood - Peripheral No growth in 4 days Anaerobic Blood Culture - Preliminary No growth in 4 days - Impressions ITS Impressions Abdomen/Pelvis CT 12/18/17 00:00 CONCLUSION: 1. Broad area cellulitis of the anterior abdominal wall, mostly in the right lower quadrant. No perceptible abscess. No intraperitoneal involvement demonstrated. 2. CT appearance of the uterus of concern for a possible endometrial mass/ carcinoma. 3. Left adrenal nodules, nonspecific but statistically most likely adenomas. 4. Bilateral benign renal cysts. 5. Cholelithiasis without evidence of cholecystitis. No ductal stone or ductal dilatation. 6. Atherosclerotic aorta. 7. Small hiatal hernia. Abdomen Ultrasound 12/20/17 00:00 CONCLUSION: 1. Soft tissue swelling right lower quadrant without collection. Discharge Plan - Discharge Disposition Patient Disposition: Discharge Home - Discharge Condition Condition: Stable - Discharge Order Discharge Orders: Discharge Order (Routine); Ordered 12/21/17 Ordered By: Justin Hutchins - Discharge Details Anticipated Discharge Date: 12/21/17 - Physicians Team Primary Care Provider: Blake Wilder Attending Provider: Augustine Moctezuma
[2017-12-22] MEDS ORDERED: VANCOMYCIN OTHER ONE (06:00)
== END 2017-12-21 18:28 | disposition home or self-care (01) ==
LOC: PHED 19:58 → PHEDA 12-18 01:18 → PH3 12-18 02:30
PROVIDERS: ADMIT Internal Medicine; ATTEND Internal Medicine